=== PATIENT | female | born 1980 | race Caucasian/White ===

== ENCOUNTER 2021-11-08 15:59 | Emergency (ER) | payer BC ==
[2021-11-08] MEDS ORDERED: Pepcid 20 MG VIAL IV ONE ×2 (16:18→16:25)
[2021-11-08] MEDS ORDERED: solu-MEDROL 125 MG, Sterile H2O 10 ml 2 ML IV ONE ×2 (16:19)
[2021-11-08] MEDS ORDERED: BENADRYL 50 MG/ML IV ONE (16:19)
[2021-11-08 16:20] VITALS: O2SAT 97
[2021-11-08] MEDS ORDERED: Sterile H2O 10 ml IJ ONE (16:25)
[2021-11-08] MEDS ORDERED: BENADRYL 50 MG/ML ONE (16:25)
[2021-11-08] MEDS ORDERED: solu-MEDROL ONE (16:25)
[2021-11-08] MEDS ORDERED: EPINEPHRINE ABBOJECT 1 MG IJ ONE (16:26)
[2021-11-08] MEDS ORDERED: Epinephrine Preservative Free 1 MG/ML ONE (16:31)
--- NOTE | 2021-11-08 17:00 | ERPHSYRPT ---
- History of Present Illness Source: patient Exam Limitations: no limitations Patient Subjective Stated Complaint: pt states she feels like her chest is swollen/labored breathing. pt states her tongue is swollen. pt was diagnosed with angioedema not long ago. pt unsure of allergy. pt states she was given epi pen. pt has had reoccuring episodes of allergic reactions. Triage Nursing Assessment: pt ambulatory, skin pwd. pt alert and oriented x 4. pt with swelling to left side of tongue. pt states it started this morning pt states it felt like something is caught in her chest after eating breakfast. Physician History: 40 yo wf w h/o angioedema x 2 months presents w trouble swallowing while eating cereal at 9:00AM w angioedema of tongue beginning at 13:00. Pt states that she is dyspneic and has some mid-sternal pain, associated w her dysphagia. Timing/Duration: other (9:00AM) Severity: moderate Modifying Factors: Improves With: nothing Associated Symptoms: nausea, vomiting (x1), shortness of breath, chest pain, No abdominal pain, No diaphoresis, No cough, No chills, No fever, No headaches, No loss of appetite, No malaise, No rash, No syncope, No seizure, No weakness Allergies/Adverse Reactions: No Known Drug Allergies Allergy (Unverified 11/08/21 16:20) Home Medications: Levothyroxine Sodium 1 tab PO DAILY 11/08/21 [History] Hx Tetanus, Diphtheria Vaccination/Date Given: Yes Hx Influenza Vaccination/Date Given: Yes Hx Pneumococcal Vaccination/Date Given: No Immunizations Up to Date: Yes Travel Risk - International Travel Have you traveled outside of the country in past 3 weeks: No - Coronavirus Screening Are you exhibiting any of the following symptoms?: No Close contact with a COVID-19 positive Pt in past 14-21 Days: No - Vaccine Status Have you recieved a Covid-19 vaccination: Yes 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: [employer] - Vaccination Dates Date of 2cond Vaccination (if applicable): nov 2020 - Review of Systems Constitutional: No Symptoms Eyes: No Symptoms Ears, Nose, & Throat: No Symptoms, Painful Swallowing Respiratory: No Symptoms, Dyspnea Cardiac: No Symptoms, Chest Pain Abdominal/Gastrointestinal: No Symptoms, Nausea, Vomiting Genitourinary Symptoms: No Symptoms Musculoskeletal: No Symptoms Skin: No Symptoms Neurological: No Symptoms Psychological: No Symptoms Endocrine: No Symptoms Hematologic/Lymphatic: No Symptoms Immunological/Allergic: No Symptoms - Past Medical History Pertinent Past Medical History: No Cardiac History: Hypertension Endocrine Medical History: Hypothyroidism - Past Surgical History Past Surgical History: Yes Female Surgical History: Section Other Surgical History: leep procedure - Social History Smoking Status: Never smoker Exposure to second hand smoke: No Drug Use: none Patient Lives Alone: Yes Significant Family History: no pertinent family hx - Female History Hx Now: No - Nursing Vital Signs Nursing Vital Signs: Initial Vital Signs Temperature 98.2 F 11/08/21 16:11 Pulse Rate 110 H 11/08/21 16:11 Respiratory Rate 22 11/08/21 16:11 Blood Pressure 132/94 11/08/21 16:11 O2 Sat by Pulse Oximetry 97 11/08/21 16:11 Pain Scale Pain Intensity 4 Tachy - Physical Exam General Appearance: no apparent distress, anxiety Eye Exam: PERRL/EOMI, eyes nml inspection Ears, Nose, Throat Exam: TMs normal, moist mucous membranes, other (Mild angioedema of L side of tongue wo airway compromis) Neck Exam: normal inspection, non-tender, supple, full range of motion, other (No stridor), No meningismus, No mass, No Brudzinski, No Kernig's Respiratory Exam: normal breath sounds, lungs clear, airway intact, No diminished breath sounds Cardiovascular Exam: tachycardia, capillary refill <2 sec, No murmur Gastrointestinal/Abdomen Exam: soft, normal bowel sounds, No tenderness Back Exam: normal inspection, normal range of motion, No CVA tenderness, No vertebral tenderness Extremity Exam: normal inspection, normal range of motion Neurologic Exam: alert, oriented x 3, cooperative, 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, normal mood/affect, nml cerebellar function, nml station & gait, sensation nml, No motor deficits, No sensory deficit Skin Exam: normal color, warm, dry Lymphatic Exam: No adenopathy SpO2 Interpretation: normal SpO2: 97 O2 Delivery: Room Air - Course Nursing assessment & vital signs reviewed: Yes EKG Interpreted by Me: RATE (NSR/Rate 96/Normal QT-QTc/Incomplete RBBB/Flat Twaves/No acute ST changes) Ordered Tests: Active Orders 24 hr Category Date Time Status EKG-ER Only STAT Care 11/08/21 17:04 Completed CBC W DIFF Stat Lab 11/08/21 17:23 Completed CMP Stat Lab 11/08/21 17:23 Completed PROTIME WITH INR Stat Lab 11/08/21 17:23 Completed PTT Stat Lab 11/08/21 17:23 Completed TROPONIN Q4H Lab 11/08/21 17:23 Completed Medication Summary Discontinued Medications Generic Name Dose Route Start Last Admin Trade Name Jocelyn PRN Reason Stop Dose Admin Methylprednisolone Sodium 0 mg 11/08/21 16:19 11/08/21 16:26 Succinate 125 mg/ Sterile IV 11/08/21 16:20 125 mg Water 2 ml STAT ONE Administration Diphenhydramine HCl 25 mg 11/08/21 16:19 11/08/21 16:27 Diphenhydramine Hcl 50 Mg/Ml Vial IV 11/08/21 16:20 25 mg STAT ONE Administration Diphenhydramine HCl Confirm 11/08/21 16:25 Diphenhydramine Hcl 50 Mg/Ml Vial Administered 11/08/21 16:26 Dose 50 mg .ROUTE .STK-MED ONE Epinephrine HCl 0.3 mg 11/08/21 16:26 11/08/21 16:34 Epinephrine 0.1 Mg/Ml 10 Ml Abboject IJ 11/08/21 16:27 0.3 mg STAT ONE Administration Epinephrine HCl Confirm 11/08/21 16:31 Epinephrine 1 Mg/Ml Pf Ampule Administered 11/08/21 16:32 Dose 1 mg .ROUTE .STK-MED ONE Famotidine 40 mg 11/08/21 16:18 11/08/21 16:26 Famotidine 20 Mg/1 Vial IV 11/08/21 16:19 40 mg STAT ONE Administration Famotidine Confirm 11/08/21 16:25 Famotidine 20 Mg/1 Vial Administered 11/08/21 16:26 Dose 40 mg IV .STK-MED ONE Methylprednisolone Sodium Succinate Confirm 11/08/21 16:25 Methylprednis Sod Succ 125 Mg/2 Ml Vial Administered 11/08/21 16:26 Dose 125 mg .ROUTE .STK-MED ONE Sterile Water Confirm 11/08/21 16:25 Water For Injection,Sterile 10 Ml Vial Administered 11/08/21 16:26 Dose 10 ml IJ .STK-MED ONE Lab/Rad Data: Laboratory Result Diagrams 11/08/21 17:23 11/08/21 17:23 Laboratory Results 11/08/21 11/08/21 11/08/21 Range/Units 17:23 17:23 17:23 WBC (4.0-10.5) x10^3/uL RBC (4.1-5.4) x10^6/uL Hgb (12.0-16.0) g/dL Hct (35-47) % MCV (78-100) fL MCH (26-32) pg MCHC (32-36) g/dL RDW (11.5-14.0) % Plt Count (150-450) x10^3/uL MPV (7.5-11.0) fL Gran % (36.0-66.0) % Immature Gran % (Auto) (0.00-0.4) % Nucleat RBC Rel Count (0.00-0.1) % Eos # (Auto) (0-0.5) x10^3/uL Immature Gran # (Auto) (0.00-0.03) x10^3u/L Absolute Lymphs (auto) (1.0-4.6) x10^3/uL Absolute Monos (auto) (0.0-1.3) x10^3/uL Absolute Nucleated RBC (0.00-0.01) x10^3u/L Lymphocytes % (24.0-44.0) % Monocytes % (0.0-12.0) % Eosinophils % (0.00-5.0) % Basophils % (0.0-0.4) % Absolute Granulocytes (1.4-6.9) x10^3/uL Basophils # (0-0.4) x10^3/uL PT 10.6 (9.4-12.5) SECONDS INR 1.00 (0.8-3.0) APTT 29.4 (25.1-36.5) SECONDS Sodium 139 (137-145) mmol/L Potassium 3.4 L (3.5-5.1) mmol/L Chloride 106 (98-107) mmol/L Carbon Dioxide 25 (22-30) mmol/L Anion Gap 11.5 (5-15) MEQ/L BUN 10 (7-17) mg/dL Creatinine 0.83 (0.52-1.04) mg/dL Estimated GFR > 60.0 ML/MIN Glucose 111 H (74-106) mg/dL Calcium 9.1 (8.4-10.2) mg/dL Total Bilirubin 0.30 (0.2-1.3) mg/dL AST 17 (14-36) U/L ALT 12 (0-35) U/L Alkaline Phosphatase 68 (38-126) U/L Troponin I < 0.012 (0.000-0.034) ng/mL Serum Total Protein 7.6 (6.3-8.2) g/dL Albumin 4.4 (3.5-5.0) g/dL 11/08/21 Range/Units 17:23 WBC 14.2 H (4.0-10.5) x10^3/uL RBC 4.32 (4.1-5.4) x10^6/uL Hgb 14.0 (12.0-16.0) g/dL Hct 39.9 (35-47) % MCV 92.4 (78-100) fL MCH 32.4 H (26-32) pg MCHC 35.1 (32-36) g/dL RDW 11.9 (11.5-14.0) % Plt Count 302 (150-450) x10^3/uL MPV 11.3 H (7.5-11.0) fL Gran % 77.0 H (36.0-66.0) % Immature Gran % (Auto) 0.4 (0.00-0.4) % Nucleat RBC Rel Count 0.0 (0.00-0.1) % Eos # (Auto) 0.10 (0-0.5) x10^3/uL Immature Gran # (Auto) 0.06 H (0.00-0.03) x10^3u/L Absolute Lymphs (auto) 2.39 (1.0-4.6) x10^3/uL Absolute Monos (auto) 0.67 (0.0-1.3) x10^3/uL Absolute Nucleated RBC 0.00 (0.00-0.01) x10^3u/L Lymphocytes % 16.8 L (24.0-44.0) % Monocytes % 4.7 (0.0-12.0) % Eosinophils % 0.7 (0.00-5.0) % Basophils % 0.4 (0.0-0.4) % Absolute Granulocytes 10.96 H (1.4-6.9) x10^3/uL Basophils # 0.06 (0-0.4) x10^3/uL PT (9.4-12.5) SECONDS INR (0.8-3.0) APTT (25.1-36.5) SECONDS Sodium (137-145) mmol/L Potassium (3.5-5.1) mmol/L Chloride (98-107) mmol/L Carbon Dioxide (22-30) mmol/L Anion Gap (5-15) MEQ/L BUN (7-17) mg/dL Creatinine (0.52-1.04) mg/dL Estimated GFR ML/MIN Glucose (74-106) mg/dL Calcium (8.4-10.2) mg/dL Total Bilirubin (0.2-1.3) mg/dL AST (14-36) U/L ALT (0-35) U/L Alkaline Phosphatase (38-126) U/L Troponin I (0.000-0.034) ng/mL Serum Total Protein (6.3-8.2) g/dL Albumin (3.5-5.0) g/dL - Progress Progress: improved Progress Note: 11/08/21 17:52 40mg IV Pepcid/125mg IV Solumedrol/25mg IV Benadryl/0.3 sq Epi w improvement 11/08/21 17:53 11/08/21 20:03 Pt w great airway during entire stay. Lungs CTA during entire stay wo stridor. Counseled pt/family regarding: lab results, diagnosis, need for follow-up - Departure Departure Disposition: Home Clinical Impression: Angioedema Condition: Stable Critical Care Time: No Referrals: CHIQUIS GRISSOM DO [Primary Care Provider] - Follow up/PCP as directed Instructions: Angioedema (DC) Additional Instructions: Prenisone twice a day for 3 days Maria L, Zyrtec, Xyzal, or Claritin once a day(Benadryl for emergent situations) EpiPen as needed Follow up with your family MD or Road [facility] Return to ER for shortness of breath, trouble swallowing, or increased swelling Prescriptions: Prednisone 10 mg [Deltasone 10 mg] 10 mg PO BID 3 Days #6 tablet
[2021-11-08 17:13] VITALS: BP 135/56; PULSE 93
[2021-11-08 17:25] LABS: Absolute Neutrophil Ct (ANC) 10.96 x10^3/uL (1.4-6.9); Basophil (Absolute #) 0.06 x10^3/uL (0-0.4); Eosinophil % 0.7 % (0.00-5.0); Hematocrit 39.9 % (35-47); Lymphocyte (Absolute #) 2.39 x10^3/uL (1.0-4.6); Lymphocytes % 16.8 % (24.0-44.0); Mean Cell Volume 92.4 fL (78-100); Mean Corpuscular Hemoglobin 32.4 pg (26-32); Mean Corpuscular Hgb Concent. 35.1 g/dL (32-36); Mean Platelet Volume 11.3 fL (7.5-11.0); Monocyte (Absolute #) 0.67 x10^3/uL (0.0-1.3); Monocytes % 4.7 % (0.0-12.0); Platelet Count 302 x10^3/uL (150-450); Red Blood Count 4.32 x10^6/uL (4.1-5.4); Red Cell Distribution Width 11.9 % (11.5-14.0); White Blood Count 14.2 x10^3/uL (4.0-10.5)
[2021-11-08 17:40] LABS: ALBUMIN 4.4 g/dL (3.5-5.0); ALKALINE PHOSPHATASE 68 U/L (38-126); ANION GAP 11.5 MEQ/L (5-15); BLOOD UREA NITROGEN 10 mg/dL (7-17); CHLORIDE 106 mmol/L (98-107); Calcium 9.1 mg/dL (8.4-10.2); Carbon Dioxide 25 mmol/L (22-30); Creatinine 1 0.83 mg/dL (0.52-1.04); EST GLOMERULAR FILTRATION RATE > 60.0 ML/MIN; Glucose 111 mg/dL (74-106); Potassium 3.4 mmol/L (3.5-5.1); SGOT/AST 17 U/L (14-36); SGPT/ALT 12 U/L (0-35); SODIUM 139 mmol/L (137-145); Total Protein 7.6 g/dL (6.3-8.2)
[2021-11-08 17:41] LABS: PROTIME 10.6 SECONDS (9.4-12.5); PTT 29.4 SECONDS (25.1-36.5)
== END 2021-11-08 18:56 | disposition home or self-care (01) ==
LOC: ED 15:59
DX: T78.3XXA Angioneurotic edema, initial encounter (principal); R13.10 Dysphagia, unspecified; R06.00 Dyspnea, unspecified; R07.9 Chest pain, unspecified; I10 Essential (primary) hypertension; Z79.899 Other long term (current) drug therapy; Z79.52 Long term (current) use of systemic steroids
CPT/HCPCS: 36000; 36415; 80053; 84484; 85025; 85610; 85730; 93005; 96374; 96375; 99284; J0171; J1200; J2930